=== PATIENT | female | born 1970 | race Caucasian/White ===

== ENCOUNTER 2024-03-04 06:53 | Emergency (ER) | payer BC, SELFPAY ==
[2024-03-04 06:56] VITALS: BP 169/125; PULSE 81; RESP 18; TEMP 36.5; O2SAT 95
[2024-03-04 07:01] VITALS: BP 169/125; PULSE 81; RESP 18; TEMP 36.5; O2SAT 95
--- NOTE | 2024-03-04 07:30 | DI.CT_ITS ---
Exam(s) CT RENAL COLIC WO EXAM: CT RENAL COLIC WO CLINICAL HISTORY: right flank pain. TECHNIQUE: Imaging Protocol: Axial computed tomography images with coronal and sagittal reformatted images were created and reviewed. COMPARISON: No exams were available for comparison FINDINGS: ABDOMEN: Lung Bases: Normal where visualized. Liver: Normal density. There is well-circumscribed 1.3 cm hypodense lesion in the caudal aspect of th e right lobe of the liver likely reflecting a simple cyst. Hepatic ultrasound may be obtained for fur ther characterization. Gallbladder and biliary tract: No radiodense calculus or biliary ductal dilation. Pancreas: Normal density, no abnormal calcifications or inflammatory process. Spleen: Normal. Kidneys: The left kidney is absent.There is a 4 mm stone in the inferior pole of the right kidney. N o masses seen. There is no evidence of hydronephrosis or ureterolithiasis. Adrenal glands: The right adrenal gland is unremarkable. The left adrenal gland has a lobulated appea miguel. Please correlate with prior examinations. This may represent an adrenal adenoma. Follow-up as clinically appropriate. Lymph nodes: Within normal limits. Abdominal Aorta: Abdominal portion non-dilated. Atherosclerotic calcifications are present. PELVIS: Bladder:Symmetric distention, no gross wall thickening. Bowel: No obstruction or bowel wall thickening. Appendix is unremarkable. Peritoneal cavity: No ascites, collection or mesenteric inflammatory response. No free air. Reproductive organs: Unremarkable as visualized. Bones: Within normal limits. Soft Tissues: Within normal limits. IMPRESSION: 1. Right nephrolithiasis. No ureterolithiasis or hydronephrosis. 2. Normal appendix. 3. No evidence of cholelithiasis or biliary ductal dilatation. RADIATION DOSE DELIVERED: 653.46mGy.cm Total DLP DATA REPOSITORY: All CT scans at this facility are submitted to the National Radiology Data Registry (NRDR) Dose Index Registry (DIR) with the [employer] ([employer]). RADIATION OPTIMIZATION: All CT scans at this facility use at least one of these dose optimization te chniques: automated exposure control; mA and/or kV adjustment per patient size (includes targeted exa ms where dose is matched to clinical indication); or iterative reconstruction.
--- NOTE | 2024-03-04 07:39 | ED.GENADUL_ITS ---
Discharge Plan Disposition Patient Disposition: Home Condition: Stable Discharge Details Clinical Impression: Renal colic, Nausea Primary Care Provider: Manuel Campbell ED Provider: Zain Briseno Home Meds and New Rx's Prescriptions: New ondansetron 4 mg tablet,disintegrating 4 mg PO Q6H PRN (Reason: nausea and vomiting) Qty: 30 0RF Continued venlafaxine [Effexor XR] 150 mg capsule,extended release 24hr 150 mg PO DAILY Qty: 30 0RF aripiprazole [Abilify] 5 mg tablet 5 mg PO DAILY Qty: 30 0RF No Action cetirizine [24Hour Allergy] 10 mg tablet 10 mg PO DAILY conjugated estrogens .Route Patient Comments: estrogen patch, does not know the dose Discharge Instructions Additional Instructions: Take nausea medication as needed and make sure to stay well-hydrated. Can start Gatorade or Pedialyte to improve hydration Urinalysis, kidney function and CT scan are all within normal limits today. You have been referred for primary care follow-up to establish care HPI General Date/Time Provider Initiated Documentation: 03/04/24 07:11 . Limitations to Documentation: no limitations . Information obtained by: patient . HPI Narrative: 53-year-old female with past medical history of psychiatric issues, single kidney, renal stones presents for evaluation of right flank pain. She reports that she has been having nausea, vomiting and diarrhea for the last 2 days. No fever. For the last few hours she has had some stabbing intermittent right flank pain. Not associated with urinary frequency urgency, hematuria or dysuria. No fever. Vomiting and diarrhea has improved. 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 Related Data Home Medications ?Medication ?Instructions ?Recorded ?Confirmed aripiprazole 5 mg tablet (Abilify) 5 mg PO DAILY #30 tabs 03/04/24 cetirizine 10 mg tablet (24Hour 10 mg PO DAILY 03/04/24 03/04/24 Allergy) conjugated estrogens .Route 03/04/24 ondansetron 4 mg disintegrating 4 mg PO Q6H PRN nausea and 03/04/24 tablet vomiting #30 tabs venlafaxine 150 mg 150 mg PO DAILY #30 caps 03/04/24 capsule,extended release 24 hr (Effexor XR) Previous Rx's ?Medication ?Instructions ?Recorded aripiprazole 5 mg tablet (Abilify) 5 mg PO DAILY #30 tabs 03/04/24 ondansetron 4 mg disintegrating 4 mg PO Q6H PRN nausea and 03/04/24 tablet vomiting #30 tabs venlafaxine 150 mg 150 mg PO DAILY #30 caps 03/04/24 capsule,extended release 24 hr (Effexor XR) Allergies Allergy/AdvReac Type Severity Reaction Status Date / Time No Known Allergies Allergy Unverified 03/04/24 06:58 General Stated Complaint: FlankPain LIZ: 3 Exam Narrative Exam Narrative: Review of Systems: All systems reviewed & are unremarkable except as noted in HPI and below Well-developed, no acute distress NCAT RRR no murmur Unlabored respiratory effort, clear bilaterally Nondistended abdomen soft nontender, no CVA tenderness Course Vital Signs Vital signs: Vital Signs Temperature 36.5 C 03/04/24 06:56 Pulse 81 03/04/24 06:56 Respiratory Rate 18 03/04/24 06:56 Blood Pressure 169/125 H 03/04/24 06:56 Pulse Oximetry 95 03/04/24 06:56 Temperature 36.5 C 03/04/24 07:01 Temperature Source Oral 03/04/24 07:01 Pulse 81 03/04/24 07:01 Respiratory Rate 18 03/04/24 07:01 Blood Pressure 169/125 H 03/04/24 07:01 Pulse Oximetry 95 03/04/24 07:01 Medical Decision Making Emergent evaluation of right flank pain in the setting of unilateral kidney. Patient had prior nephrectomy secondary to renal stone. She has noted to be hypertensive, does not take medication for blood pressure. She is not in signi ficant pain at this time, but having mild nausea. IV nausea medication was given. Blood work was checked, urinalysis was obtained and CT imaging as well. No leukocytosis. Renal function is within normal limits. Urinalysis does not demonstrate any abnormality. CT image Kaylah does demonstrate a 4 mm stone in the inferior pole of the right kidney. She reports prior knowledge of a stone in that location. Her pain is well-controlled and she is tolerating p.o. At this time I will provide Zofran to go home with and encouraged significant oral hydration. She does not have a primary care provider so she was placed on the urgent follow-up list. Her medications were refilled as she states that she only has a few days left. She is noted to be hypertensive as well and is recommended to discuss this with her new PCP as she may need medication if her blood pressure remains elevated. Quality:SDOH Health Related Social Needs: No Data to Display PFSH All Active Problems Nausea (Acute) Renal colic (Acute) Social History Smoking/Tobacco Use Status: Never Smoking risk assessment performed?: Yes Alcohol Intake: current Alcohol Intake frequency: a few times a week Drug use: Occasionally Substance use type: marijuana PAWSS Have you Been Recently Intoxicated or Drunk Within the Last 30 days?: No Have you Ever Experienced Previous Episodes of Alcohol Withdrawal?: No Have you ever Experienced Withdrawal Seizures?: No Have you ever Experienced Delirium Tremens(DT)s?: No Have you ever undergone Alcohol Rehabilitation Treatment (i.e, inpt ot outpatient treatment programs)?: No Have you ever Experienced Blackouts?: No Have you ever Combined Alcohol with other Downers within the last 90 days?: No Have you ever Combined Alcohol with any other Substance of Abuse during the last 90 days?: No Positive Blood Alcohol level on Presentation? [PCS.BAL]: No Evidence of Increased Autonomic Activity (i.e. HR>120, tremor, sweating, agitation, nausea)?: No Result: 0
[2024-03-04 07:49] LABS: Abs Immature Grans 0.06 10^3/uL (0.0-0.06); Absolute Basophil Count 0.05 10^3/uL (0.0-0.2); Absolute Eosinophil Count 0.06 10^3/uL (0.0-0.7); Absolute Lymphocyte Count 1.73 10^3/uL (1.2-3.4); Absolute Monocyte Count 0.51 10^3/uL (0.1-0.8); Absolute Neutrophil Count 7.23 10^3/uL (1.2-6.7); Basophils % 0.5 %; Eosinophils % 0.6 %; HGB 14.2 g/dL (11.2-15.7); Immature Grans % 0.6 %; Lymphocytes % 17.9 %; MCH 30.7 pg (27.0-33.0); MCHC 32.3 % (32.0-36.0); MCV 95 fL (80-95); MPV 9.2 fL (8.0-11.0); Monocytes % 5.3 %; Neutrophils % 75.1 %; Platelet Count 400 10^3/uL (130-400); RBC 4.63 10^6/uL (3.93-5.22); RDW 14.3 % (11.7-14.6); RDW-SD 50.1 fL; WBC 9.64 10^3/uL (4.4-10.8)
[2024-03-04 07:51] LABS: Bilirubin Negative (Negative); Blood Negative (Negative); Clarity Clear (Clear); Glucose Negative (Negative); Ketones Negative (Negative); Leukocyte Esterase Negative (Negative); Nitrite Negative (Negative); Urobilinogen 0.2 mg/dL (Up to 0.2); pH 7.5 (5-8)
[2024-03-04] MEDS: Ondansetron 4 MG/2 ML VIAL IVP (07:51)
[2024-03-04 08:00] LABS: Anion Gap 7.7 mmol/L (3-11); BUN 10 mg/dL (7-18); CO2 28.3 mmol/L (21.0-32.0); Calcium 9.2 mg/dL (8.5-10.1); Chloride 104 mmol/L (98-107); Estimated GFR 66.95 (mL/min/1.73m2); Glucose 92 mg/dL (74-106); Potassium 4.7 mmol/L (3.5-5.1); Sodium 140 mmol/L (136-145)
[2024-03-04 08:06] VITALS: BP 173/128; PULSE 85; RESP 18; O2SAT 99
[2024-03-04 08:54] VITALS: BP 158/106; PULSE 78; RESP 18; O2SAT 97
== END 2024-03-04 08:56 | disposition home or self-care (01) ==
PROVIDERS: Emergency Provider Emergency Medicine
DX: N20.0 Calculus of kidney (principal); R11.0 Nausea; R03.0 Elevated blood-pressure reading, without diagnosis of hypertension; Z90.5 Acquired absence of kidney
CPT/HCPCS: 36415; 80048; 96374; 99285; 74176; 81003; 85025; 99284; J2405

== ENCOUNTER 2024-06-07 00:54 | Outpatient (CLI) | payer BC, SELFPAY ==
--- NOTE | 2024-06-07 | DI.MAMMO_ITS ---
Exam(s) MAMMO SCREENING EXAM: MAMMO SCREENING CLINICAL HISTORY: Z12.31 screening. TECHNIQUE: Bilateral full field digital CC and MLO mammographic images were obtained with 3D tomosyn thesis and utilizing computer aided detection (CAD). COMPARISON: Prior outside mammogram performed September 2022 reviewed. FINDINGS: There has been no significant change in the appearance and distribution of the fibroglandular tissue. There are no CAD designations. There are no new spiculated masses nor malignant appearing microcalcification groups. There is no significant architectural distortion nor skin thickening-retraction. IMPRESSION: No radiographic evidence of malignancy. BI-RADS Category 1 - Negative Breast Density - Category B - Scattered areas of fibroglandular density Breast density Category C or D implies that the patient has dense breast tissue. Dense breast tissue can make it harder to find cancer on a mammogram. Dense breast tissue is also associated with an incr eased risk of breast cancer. This information about the result of the mammogram report was provided to the patient to raise their awareness. Use this report when you speak with the patient about their risks for breast cancer, which includes their family history. At that time, you may recommend additional screening tests (Ultrasoun d or MRI) as these tests may add significant information. A negative radiographic report should not delay biopsy if a dominant or clinically suspicious mass is present. Up to ten percent of cancers are not identified on mammography. A negative report may reinforce clinical impression. Adenosis and dense breasts may obscure an underlying neoplasm. False positive reports average 6 to 10%. Patient will receive a letter notifying them of these results.
== END 2024-06-07 01:14 ==
PROVIDERS: PCP Family Medicine; Visit Provider Family Medicine
DX: Z12.31 Encounter for screening mammogram for malignant neoplasm of breast (principal); R92.323 Mammographic fibroglandular density, bilateral breasts
CPT/HCPCS: 77063; 77067

== ENCOUNTER 2024-09-22 17:14 | Outpatient (REF) | payer BC, SELFPAY ==
[2024-09-22 20:53] LABS: Abs Immature Grans 0.06 10^3/uL (0.0-0.06); HCT 44.0 % (36.0-46.0); HGB 14.5 g/dL (11.2-15.7); Immature Grans % 0.9 %; MCH 30.7 pg (27.0-33.0); MCHC 33.0 % (32.0-36.0); MCV 93 fL (80-95); MPV 9.7 fL (8.0-11.0); Platelet Count 358 10^3/uL (130-400); RBC 4.73 10^6/uL (3.93-5.22); RDW 13.6 % (11.7-14.6); RDW-SD 46.3 fL; WBC 6.75 10^3/uL (4.4-10.8)
[2024-09-22 21:33] LABS: ALT 35 U/L (14-59); AST 19 U/L (15-37); Albumin 3.6 g/dL (3.4-5.0); Alkaline Phosphatase 136 U/L (46-116); Anion Gap 10.6 mmol/L (3-11); BUN 11 mg/dL (7-18); Bilirubin, Total 0.2 mg/dL (0.2-1.0); CO2 25.4 mmol/L (21.0-32.0); Calcium 9.2 mg/dL (8.5-10.1); Chloride 106 mmol/L (98-107); Cholesterol 260 mg/dL (<200); Estimated GFR 86.96 (mL/min/1.73m2); Glucose 102 mg/dL (74-106); HDL Cholesterol 42 mg/dL (>or=50); Potassium 4.7 mmol/L (3.5-5.1); Sodium 142 mmol/L (136-145); TSH 3.37 uIU/mL (0.36-3.74); Total Protein 7.5 g/dL (6.4-8.2); Triglyceride 442 mg/dL (<150); Vitamin D 25 Total 14 ng/mL (30-100)
[2024-09-22 21:50] LABS: LDL CHOLESTEROL 161 mg/dL (<100)
[2024-09-22 22:10] LABS: Hemoglobin A1C 5.4 % (<5.7)
== END 2024-09-22 17:15 | disposition home or self-care (01) ==
LOC: NCHCN 17:14
PROVIDERS: PCP Family Medicine; Visit Provider Family Medicine
DX: Z00.00 Encounter for general adult medical examination without abnormal findings (principal)
CPT/HCPCS: 80053; 80061; 82306; 83721; 83036; 84443; 85025

== ENCOUNTER 2024-10-07 17:47 | Outpatient (REF) | payer BC, SELFPAY ==
--- NOTE | 2024-10-07 15:45 | PAPFT_PTH ---
PATIENT: Kaleigh Yu LOC: [facility]#:[id number] AGE/SX: 54/F ROOM: RE10/07/[address]: Lidya Webster : 1970 BED: DIS: 10/07/2024 SPEC #: [id number] RECD: 10/07/24 18:26 STATUS: ABRAHAM REKate #: [id number] DANY: 10/07/24 15:[address]: Lidya Webster DEPT: PENDING SALE TO [facility] Cytology RECD BY: Ying Brannon Tissues: 1 - CX/ENDOCX FOR PAP SMEARS Procedures: PAP THIN PREP/UVM Screening HPV DNA PROBE Comments: [id number] (HPV 16 & 18/45)
== END 2024-10-07 17:48 | disposition home or self-care (01) ==
LOC: NCHCN 17:47
PROVIDERS: PCP Family Medicine; Visit Provider Nurse Practitioner Family
DX: Z11.51 Encounter for screening for human papillomavirus (HPV) (principal); Z01.419 Encounter for gynecological examination (general) (routine) without abnormal findings
CPT/HCPCS: 88142; 87624

== ENCOUNTER 2024-10-14 07:27 | Emergency (ER) | payer BC, SELFPAY ==
[2024-10-14 07:27] VITALS: BP 154/102; PULSE 69; RESP 16; TEMP 36.6; O2SAT 98
[2024-10-14 07:31] VITALS: BP 154/102; PULSE 69; RESP 16; TEMP 36.6; O2SAT 98
--- NOTE | 2024-10-14 07:37 | W.ED.GENAD ---
Discharge Plan Disposition Patient Disposition: Home Discharge Details Clinical Impression: Acute UTI Primary Care Provider: Andrei Cobb ED Provider: Jose Roberto Nelson Home Meds and New Rx's Prescriptions: New cephalexin 250 mg capsule 250 mg PO QID 5 Days Qty: 20 0RF Continued aripiprazole [Abilify] 5 mg tablet 5 mg PO DAILY Qty: 30 1RF venlafaxine [Effexor XR] 150 mg capsule,extended release 24hr 150 mg PO DAILY Qty: 30 1RF albuterol sulfate 90 mcg/actuation HFA aerosol inhaler 2 puff inhalation Q6H PRN (Reason: shortness of breath or wheezing) Qty: 8.5 0RF amlodipine 2.5 mg tablet 2.5 mg PO DAILY ondansetron 4 mg tablet,disintegrating 4 mg PO Q6H cetirizine [24Hour Allergy] 10 mg tablet 10 mg PO DAILY Discharge Instructions Instructions: Urinary Tract Infection, Adult ED Additional Instructions: You were seen in the emergency department for your burning while urinating. You are found to have a urinary tract infection for which you are receiving antibiotics that you should take as directed. As we discussed if you do develop flank pain fevers cannot eat or drink as a result of nausea or vomiting or if you have any other concerns please return to the emergency department. Otherwise please follow-up with your primary care provider as needed. For your pain please take medications as follows: 1. Take acetaminophen (Tylenol), 1,000 mg (two 500 mg tabs) every 6 hours Discharge Data Discharge Date/Time-TO BE ENTERED AT DEPARTURE: 10/14/24 08:50 HPI General Date/Time Provider Initiated Documentation: 10/14/24 07:37. HPI Narrative: [facility] This is an overall very well-appearing normothermic and not tachycardic 54-year-old female with suprapubic discomfort dysuria and frequency most consistent with UTI for which patient will receive urinalysis testing. Patient and I discussed at length about her nephrolithiasis. She had a CT scan earlier this year showing a 4 mm right inferior pole nephrolithiasis. Given that her symptoms began this week with dysuria and hematuria and suprapubic discomfort but not flank pain, my suspicion is relatively low for ureterallithiasis. Patient agreed and noted that in the past when she had had symptomatic ureterolithiasis she was markedly uncomfortable with stabbing flank pain. As a result we elected to defer renal CT scan at this juncture. I considered whether or not patient could have pyelonephritis. She had no CVA tenderness nor fevers so my suspicion is low for pyelonephritis. She has soft nontender abdomen so I am not suspicious for appendicitis acute cholecystitis nor diverticulitis. She had no rash or abdomen to suggest zoster. No pain out of proportion to suggest necrotizing soft tissue infection. She has not been vomiting to suggest increased risk for small bowel obstruction. No nausea nor chest pain to suggest ACS I did not obtain ECG. Will reassess following urinalysis. We also discussed that in the absence of vomiting or diarrhea my suspicion for acute kidney injury was quite low. Patient appears quite hydrated so I did not feel she required assessment of her electrolytes. We did discuss that if she went on to develop nausea or vomiting that she should return to the emergency department for reassessment of her electrolytes. 8:35 AM Patient's urinalysis is quite consistent with a UTI. It is nitrite leuk esterase positive with large blood. Microscopy showing greater than 50 RBCs per high-powered field with few bacteria. Her repeat vitals showed improved blood pressure. She continued to lack tachycardia. She understood her return indications and was discharged with an empiric trial of expectant outpatient management. HPI This is a patient with a history of urinary tract infections and kidney stones presenting with burning during urination. The patient began experiencing a burning sensation during urination a few days ago, which prompted her to increase her fluid intake. Her urine was clear until this morning when she noticed blood in it. She also reported feeling achy and uncomfortable. She describes the discomfort as similar to when a stone enters the bladder. She has not undergone any workup for a potential bladder stone. She reports no fevers, vomiting, or nausea, but mentions cramping pain near her bladder and a burning sensation during urination. She has been experiencing some pain radiating to her flanks bilaterally for the past few hours. She has only one kidney, as the other was removed six years ago. She notes that her symptoms are markedly more mild compared to prior episodes of renal colic. PAST SURGICAL HISTORY: The patient had one kidney removed six years ago. Exam General: Well-appearing in no acute distress speaking in complete sentences. Head: Normocephalic, atraumatic. Eye: Extraocular eye movements intact. No conjunctival injection. No scleral icterus. Ear, nose, mouth, throat: Grossly normal inspection. Normal voice, handling secretions normally. Moist mucous membranes. Neck: Trachea midline. Cardiovascular: Well-perfused distal extremities. Respiratory: Nonlabored respiration. Gastrointestinal: Nondistended abdomen. Soft. Nontender. No rebound. No guarding. Back: No CVA tenderness bilaterally. Musculoskeletal: No edema. Moving all 4 extremities spontaneously. Skin: Normal for age and race, grossly normal temperature and turgor. No acute rash. Neurologic: Alert and appropriate, no apparent acute deficits. Psychiatric: Mood and manner are appropriate. Grooming and personal hygiene are appropriate. Related Data Home Medications ?Medication ?Instructions ?Recorded ?Confirmed cetirizine 10 mg tablet (24Hour 10 mg PO DAILY 03/04/24 10/14/24 Allergy) albuterol sulfate 90 mcg/actuation 2 puff inhalation Q6H PRN 04/14/24 10/14/24 aerosol inhaler shortness of breath or wheezing #8.5 grams aripiprazole 5 mg tablet (Abilify) 5 mg PO DAILY #30 tabs 04/14/24 10/14/24 venlafaxine 150 mg 150 mg PO DAILY #30 caps 04/14/24 10/14/24 capsule,extended release 24 hr (Effexor XR) amlodipine 2.5 mg tablet 2.5 mg PO DAILY 09/27/24 10/14/24 ondansetron 4 mg disintegrating 4 mg PO Q6H 09/27/24 10/14/24 tablet cephalexin 250 mg capsule 250 mg PO QID 5 days #20 caps 10/14/24 Previous Rx's ?Medication ?Instructions ?Recorded albuterol sulfate 90 mcg/actuation 2 puff inhalation Q6H PRN 04/14/24 aerosol inhaler shortness of breath or wheezing #8.5 grams aripiprazole 5 mg tablet (Abilify) 5 mg PO DAILY #30 tabs 04/14/24 venlafaxine 150 mg 150 mg PO DAILY #30 caps 04/14/24 capsule,extended release 24 hr (Effexor XR) cephalexin 250 mg capsule 250 mg PO QID 5 days #20 caps 10/14/24 Allergies Allergy/AdvReac Type Severity Reaction Status Date / Time No Known Allergies Allergy Unverified 10/14/24 07:32 General Stated Complaint: Urinary LIZ: 3 Course Vital Signs Vital signs: Vital Signs Temperature 36.6 C 10/14/24 07:27 Pulse 69 10/14/24 07:27 Respiratory Rate 16 10/14/24 07:27 Blood Pressure 154/102 H 10/14/24 07:27 Pulse Oximetry 98 10/14/24 07:27 Temperature 36.6 C 10/14/24 07:31 Temperature Source Tympanic 10/14/24 07:31 Pulse 69 10/14/24 07:31 Respiratory Rate 16 10/14/24 07:31 Blood Pressure 154/102 H 10/14/24 07:31 Blood Pressure Position Sitting 10/14/24 07:31 Pulse Oximetry 98 10/14/24 07:31 Oxygen Delivery Method Room Air 10/14/24 07:31 Oxygen Flow Rate 0 10/14/24 07:31 Pain Level 6 10/14/24 07:31 PFSH All Active Problems (Updated 10/14/24 @ 08:37 by Jose Roberto Nelson MD) Acute UTI (Acute) History of nephrectomy (Acute) Recurrent kidney stones (Acute) Essential hypertension (Acute) Obstructive sleep apnea (Chronic) PTSD (post-traumatic stress disorder) (Acute) Mixed anxiety and depressive disorder (Acute) Herpesvirus infection (Acute) Medical History (Updated 10/14/24 @ 08:37 by Jose Roberto Nelson MD) History of kidney stones Family History (Updated 09/27/24 @ 11:39 by Andrei Torres) Mother Diabetes type 2 Father Diabetes type 2 Social History (Updated 09/27/24 @ 11:38 by Andrei Torres) Smoking/Tobacco Use Status: Former Tobacco Use tobacco type: cigarettes Tobacco: How many years used: 23 Smoking risk assessment performed?: Yes Alcohol Intake: current Alcohol Intake frequency: a few times a week Drug use: Occasionally Substance use type: marijuana Housing: house PAWSS Have you Been Recently Intoxicated or Drunk Within the Last 30 days?: No Have you Ever Experienced Previous Episodes of Alcohol Withdrawal?: No Have you ever Experienced Withdrawal Seizures?: No Have you ever Experienced Delirium Tremens(DT)s?: No Have you ever undergone Alcohol Rehabilitation Treatment (i.e, inpt ot outpatient treatment programs)?: No Have you ever Experienced Blackouts?: No Have you ever Combined Alcohol with other Downers within the last 90 days?: No Have you ever Combined Alcohol with any other Substance of Abuse during the last 90 days?: No Result: 0
[2024-10-14 08:22] LABS: Glucose Negative (Negative)
[2024-10-14 08:34] LABS: RBC >50 HPF (0-2)
[2024-10-14 08:35] LABS: C & S Indicated? No
[2024-10-14] MEDS: Cephalexin 250 MG CAP PO (08:42)
[2024-10-14] MEDS: Acetaminophen 500 MG TAB 1000 MG PO (08:42)
[2024-10-14 08:49] VITALS: BP 130/108; PULSE 70; RESP 15; O2SAT 98
== END 2024-10-14 08:50 | disposition home or self-care (01) ==
PROVIDERS: Emergency Provider Emergency Medicine; PCP Family Medicine
DX: N39.0 Urinary tract infection, site not specified (principal)
CPT/HCPCS: 99283 ×2; 81003; 81015

== ENCOUNTER 2024-12-31 12:18 | Outpatient (REF) | payer BC, SELFPAY ==
[2024-12-31 16:02] LABS: Abs Immature Grans 0.07 10^3/uL (0.0-0.06); HCT 41.1 % (36.0-46.0); HGB 13.4 g/dL (11.2-15.7); Immature Grans % 0.9 %; MCH 31.1 pg (27.0-33.0); MCHC 32.6 % (32.0-36.0); MCV 95 fL (80-95); MPV 9.5 fL (8.0-11.0); Platelet Count 374 10^3/uL (130-400); RBC 4.31 10^6/uL (3.93-5.22); RDW 14.9 % (11.7-14.6); RDW-SD 52.8 fL; WBC 8.18 10^3/uL (4.4-10.8)
[2024-12-31 17:13] LABS: ALT 40 U/L (14-59); AST 18 U/L (15-37); Albumin 3.5 g/dL (3.4-5.0); Alkaline Phosphatase 144 U/L (46-116); Anion Gap 10.2 mmol/L (3-11); BUN 12 mg/dL (7-18); Bilirubin, Total 0.2 mg/dL (0.2-1.0); CO2 25.8 mmol/L (21.0-32.0); Calcium 9.2 mg/dL (8.5-10.1); Chloride 107 mmol/L (98-107); Glucose 116 mg/dL (74-106); Lipase 138 U/L (<78); Potassium 4.1 mmol/L (3.5-5.1); Sodium 143 mmol/L (136-145); Total Protein 7.2 g/dL (6.4-8.2)
== END 2024-12-31 12:19 | disposition home or self-care (01) ==
LOC: LBN 12:18
PROVIDERS: PCP Family Medicine; Visit Provider Physician Assistant Medical
DX: R10.11 Right upper quadrant pain (principal)
CPT/HCPCS: 80053; 83690; 85025